=== PATIENT | female | born 1955 ===

== ENCOUNTER → 2024-10-16 | Outpatient (REF) | payer OTHER ==
[2024-10-16 18:16] LABS: CREATININE,RANDOM URINE 19.5 MG/DL
[2024-10-16 18:17] LABS: TOTAL PROTEIN,RANDOM URINE < 6.0 MG/DL (0.0-14.0)
[2024-10-16 18:47] LABS: BACTERIA, URINE AUTO NEGATIVE (NEGATIVE); RBC, URINE AUTO 1 /HPF (0-3); SQUAMOUS EPITHELIAL CELL UR AU 1 /HPF (0-6); WBC, URINE AUTO 0 /HPF (0-3)
== END ==
LOC: M LAB REF 17:09
PROVIDERS: ATTEND Internal Medicine Nephrology
DX: N18.31 Chronic kidney disease, stage 3a (principal); R31.21 Asymptomatic microscopic hematuria